=== PATIENT | male | born 1980 | race Two or more races ===

== ENCOUNTER 2021-05-17 04:45 | Emergency (ER) | payer BC ==
[2021-05-17] MEDS ORDERED: Sodium Chloride 0.9% 2.5 ML Syringe FLUSH PRN (05:32)
[2021-05-17] MEDS ORDERED: Sodium Chloride 0.9% 10 ML Syringe FLUSH PRN (05:32)
[2021-05-17] MEDS ORDERED: methylPREDNISolone Sodium Succinate 125 MG/2 ML SDV IVPUSH ONE (05:32)
[2021-05-17] MEDS ORDERED: Albuterol/Ipratropium 3.0-0.5 MG/3 ML Neb Soln NEB ONE (05:32)
--- NOTE | 2021-05-17 05:36 | EDM.PDOC ---
ED HPI GENERAL MEDICAL PROBLEM - General Time Seen by Provider: 05/17/21 04:47 - History of Present Illness INITIAL COMMENTS - FREE TEXT/NARRATIVE: History of present illness: [] Patient reports he is short of breath. Patient has no history of lung problems. Patient does not smoke. Patient has felt feverish and has a headache and body aches. Patient is short of breath to the point where he cannot tolerate minimal exertion. His oxygen saturation on arrival was 45% on room air. He is only 85% on 100% nonrebreather mask. Review of systems: As per history of present illness and below otherwise all systems reviewed and negative. Past medical history: As per history of present illness and as reviewed below otherwise noncontributory. Surgical history: As per history of present illness and as reviewed below otherwise noncontributory. Social history: No reported history of drug or alcohol abuse. Family history: As per history of present illness and as reviewed below otherwise noncontributory. Physical exam: Constitutional - well developed, well-nourished and in no acute distress HEENT - normocephalic, no evidence of trauma - external nose and mouth normal - no mass in neck and no JVD - mucosae moist EYES - full EOM, PERRL, no icterus - no evidence of inflammation, injection, or drainage Respiratory -moderate respiratory distress, equal bilateral expansion, lungs scattered Rales-prolonged expiratory phase of respiration-tachypneic Cardiovascular - Regular Rhythm with S1 and S2 appreciated and no murmur, gallop or rub. GI - abdomen soft without distension or organomegaly - normal bowel sounds - no guard or rebound Musculoskeletal no gross deformity of long bones or joints - no tenderness, swelling or edema Neurologic - Alert and oriented times four - CN II-XII grossly intact - motor sensory and coordination symmetrically normal Psychiatric - appropriate mood and affect with normal thought content Hematologic - No petechiae or purpura - mucosa appropriate color and sclera not pale - normal nail bed color and refill Integument - no rash or evidence of trauma - normal turgor Diagnostics: [] Therapeutics: [] Impression: [] Plan: [] Definitive disposition and diagnosis as appropriate pending reevaluation and review of above. - Related Data Allergies Allergy/AdvReac Type Severity Reaction Status Date / Time No Known Allergies Allergy Verified 05/17/21 05:54 Home Meds: Home Meds . [No Known Home Meds] 05/17/21 [History] ED ROS GENERAL - Review of Systems Review Of Systems: Comprehensive ROS is negative, except as noted in HPI. ED EXAM, GENERAL - Physical Exam Exam: See Below Free Text/Narrative:: My physical exam is in the HPI #1 Interpretation EKG Interpretation Comments: EKG done May 17, 2021 at 6:01 AM shows sinus tachycardia heart rate 101 VA 135 QT duration 435 axis I 113 left posterior fascicular block and late transition R wave in the precordium. No prior for comparison. Impression no obvious acute injury Course - Vital Signs Last Recorded V/S: Last Vital Signs Temp 37.4 C 05/17/21 05:55 Pulse 102 H 05/17/21 05:55 Resp 26 H 05/17/21 05:55 BP 115/64 05/17/21 05:55 Pulse Ox 93 L 05/17/21 06:27 - Orders/Labs/Meds Orders: Active Orders 24 hr Category Date Time Status Consult to Respiratory Therapy [Respiratory Care Assess Cons 05/17/21 05:37 Active and Treatment] [CONS] Stat Chest 1V Frontal [CR] Stat Exams 05/17/21 05:34 Ordered BLOOD GAS ARTERIAL [BG] Stat Lab 05/17/21 05:33 Ordered CBC WITH AUTO DIFF [HEME] Stat Lab 05/17/21 05:30 Results COMPREHENSIVE METABOLIC PN,CMP [CHEM] Stat Lab 05/17/21 05:30 Received D-DIMER QUANTITATIVE [COAG] Stat Lab 05/17/21 05:30 Received TROPONIN I [CHEM] Stat Lab 05/17/21 05:30 Received Sodium Chloride 0.9% [Saline Flush] Med 05/17/21 05:32 Active 10 ml FLUSH ASDIRECTED PRN Sodium Chloride 0.9% [Saline Flush] Med 05/17/21 05:32 Active 2.5 ml FLUSH ASDIRECTED PRN Saline Lock Insert [OM.PC] Stat Oth 05/17/21 05:33 Ordered Medication Orders Sodium Chloride (Sodium Chloride 0.9% 10 Ml Syringe) 10 ml FLUSH ASDIRECTED PRN PRN Reason: Keep Vein Open Last Admin: 05/17/21 05:48 Dose: 10 ml Documented by: [email or web address] Sodium Chloride (Sodium Chloride 0.9% 2.5 Ml Syringe) 2.5 ml FLUSH ASDIRECTED PRN PRN Reason: Keep Vein Open Last Admin: 05/17/21 05:48 Dose: 2.5 ml Documented by: RAMIN Labs: Laboratory Tests 05/17/21 05/17/21 Range/Units 05:30 05:30 WBC 8.12 (4.0-11.0) K/uL RBC 5.01 (4.50-5.90) M/uL Hgb 15.3 (13.0-17.0) g/dL Hct 43.9 (38.0-50.0) % MCV 87.6 (80.0-98.0) fL MCH 30.5 (27.0-32.0) pg MCHC 34.9 (31.0-37.0) g/dL RDW Std Deviation 42.4 (28.0-62.0) fl RDW Coeff of Gena 13 (11.0-15.0) % Plt Count 210 (150-400) K/uL MPV 11.60 (7.40-12.00) fL Add Manual Diff YES Nucleated RBC % 0.0 /100WBC Nucleated RBCs # 0 K/uL Influenza Type A RNA NEGATIVE (NEGATIVE) Influenza Type B RNA NEGATIVE (NEGATIVE) SARS-CoV-2 RNA (MATILDE) POSITIVE H (NEGATIVE) Meds: Medications Generic Name Dose Route Start Last Admin Trade Name Freq PRN Reason Stop Dose Admin Sodium Chloride 10 ml 05/17/21 05:32 05/17/21 05:48 Sodium Chloride 0.9% 10 Ml Syringe FLUSH 10 ml ASDIRECTED PRN Administration Keep Vein Open Sodium Chloride 2.5 ml 05/17/21 05:32 05/17/21 05:48 Sodium Chloride 0.9% 2.5 Ml Syringe FLUSH 2.5 ml ASDIRECTED PRN Administration Keep Vein Open Discontinued Medications Generic Name Dose Route Start Last Admin Trade Name Freq PRN Reason Stop Dose Admin Albuterol/Ipratropium 3 ml 05/17/21 05:32 05/17/21 05:40 Albuterol/Ipratropium 3.0-0.5 Mg/3 Ml Neb Soln NEB 05/17/21 05:33 3 ml ONETIME ONE Administration Methylprednisolone Sodium Succinate 125 mg 05/17/21 05:32 05/17/21 05:44 Methylprednisolone Sodium Succinate 125 Mg/2 Ml Sdv IVPUSH 05/17/21 05:33 125 mg ONETIME ONE Administration - Re-Assessments/Exams Free Text/Narrative Re-Assessment/Exam: 05/17/21 05:48 Distally look like because of his oxygen saturation and his efforts he might have to be intubated. At this point he is able to talk and finish his sentence and he is feeling subjectively better. Sats are still a problem but he is working a lot less intensely and subjectively feels better. 05/17/21 06:02 X-ray shows diffuse bilateral infiltrates. This is most likely consistent with Covid pneumonia. 05/17/21 06:14 The x-ray order did not crossover into PACS. The report will be available but the film itself will be in the [facility] system and not in PACS today. 05/17/21 06:[address] Angelo who most graciously agreed to accept this patient. We will try high flow oxygen and that does not work BiPAP. If he needs to be intubated do have to be transferred. At this point we will put him in the ICU on remdesivir. Departure - Departure Time of Disposition: 06:44 Disposition: Admitted As Inpatient 67 Condition: Serious Clinical Impression: Pneumonia due to COVID-19 virus, Respiratory failure with hypoxia - Discharge Information Referrals: PCP,None [Primary Care Provider] - Sepsis Event Note (ED) - Focused Exam Vital Signs: Vital Signs Temp Pulse Resp BP Pulse Ox 05/17/21 06:27 93 L 05/17/21 05:55 37.4 C 102 H 26 H 115/64 37 L - My Orders Last 24 Hours: My Active Orders 05/17/21 05:30 CBC WITH AUTO DIFF [HEME] Stat COMPREHENSIVE METABOLIC PN,CMP [CHEM] Stat D-DIMER QUANTITATIVE [COAG] Stat TROPONIN I [CHEM] Stat 05/17/21 05:32 Sodium Chloride 0.9% [Saline Flush] 10 ml FLUSH ASDIRECTED PRN Sodium Chloride 0.9% [Saline Flush] 2.5 ml FLUSH ASDIRECTED PRN 05/17/21 05:33 BLOOD GAS ARTERIAL [BG] Stat Saline Lock Insert [OM.PC] Stat 05/17/21 05:34 Chest 1V Frontal [CR] Stat 05/17/21 05:37 Consult to Respiratory Therapy [Respiratory Care Assess and Treatment] [CONS] Stat - Assessment/Plan Last 24 Hours: My Active Orders 05/17/21 05:30 CBC WITH AUTO DIFF [HEME] Stat COMPREHENSIVE METABOLIC PN,CMP [CHEM] Stat D-DIMER QUANTITATIVE [COAG] Stat TROPONIN I [CHEM] Stat 05/17/21 05:32 Sodium Chloride 0.9% [Saline Flush] 10 ml FLUSH ASDIRECTED PRN Sodium Chloride 0.9% [Saline Flush] 2.5 ml FLUSH ASDIRECTED PRN 05/17/21 05:33 BLOOD GAS ARTERIAL [BG] Stat Saline Lock Insert [OM.PC] Stat 05/17/21 05:34 Chest 1V Frontal [CR] Stat 05/17/21 05:37 Consult to Respiratory Therapy [Respiratory Care Assess and Treatment] [CONS] Stat
[2021-05-17 06:35] LABS: CORONAVIRUS COVID-19 NAA POSITIVE (NEGATIVE); INFLUENZA A NAA NEGATIVE (NEGATIVE); INFLUENZA B NAA NEGATIVE (NEGATIVE)
[2021-05-17 06:45] LABS: BLOOD UREA NITROGEN,BUN 16 mg/dL (7.0-18.0); CARBON DIOXIDE,CO2 27.6 mmol/L (21.0-32.0); CHLORIDE,CL 97 mmol/L (98-107); POTASSIUM,K 4.2 mmol/L (3.5-5.1); SODIUM,NA 137 mmol/L (136-148)
[2021-05-17 06:50] LABS: GLUCOSE RANDOM 160 mg/dL (74-106)
--- NOTE | 2021-05-17 09:07 | CR ---
INDICATION: Shortness of breath and hypoxia. TECHNIQUE: Chest 1 view. COMPARISON: None. FINDINGS: Cardiovascular and mediastinum: Heart size and vasculature are normal in caliber and appearance. Lungs and pleural spaces: Diffuse bilateral ill-defined pulmonary infiltrates. No significant effusion and no pneumothorax. Bones and soft tissues: No significant findings. IMPRESSION: Diffuse bilateral pulmonary infiltrates in a pattern suspicious for severe COVID pneumonitis. Dictated by: David Toledo MD @ 05/17/2021 09:05:05 (Electronically Signed)
== END 2021-05-17 07:49 | disposition critical access hospital (66) ==
LOC: MW.ED 04:45 → EDUNIT# 04:45 → MW.ED 07:48
DX: U07.1 COVID-19 (principal); J12.82 Pneumonia due to coronavirus disease 2019; J96.91 Respiratory failure, unspecified with hypoxia; I44.5 Left posterior fascicular block
CPT/HCPCS: 0240U; 36415; 36600; 71045; 80053; 82803; 84484; 85025; 85379; 93005; 96374; 99285; J2930; J7620-GY